=== PATIENT | female | born 1995 | race Caucasian/White ===

== ENCOUNTER 2021-01-02 19:01 | Emergency (ER) | payer BC, OTHER ==
[~2021-01-02] VITALS: Ht 160 cm; Wt 44.1 kg
--- NOTE | 2021-01-02 19:35 | NUR ---
pt presents to the ed with chest pain. pt states it gets worse with movement and deep breaths. pt stated that this pain started this morning with no relief. pt in gown, resting on gurney, and placed on continuous monitoring.
[2021-01-02] MEDS ORDERED: CYCLOBENZAPRINE 10 MG TABLET ONE (19:49)
[2021-01-02] MEDS ORDERED: KETOROLAC 30 MG/1 ML ONE (19:49)
[2021-01-02] MEDS ORDERED: CYCLOBENZAPRINE 10 MG TABLET PO ONE (20:00)
[2021-01-02] MEDS ORDERED: KETOROLAC 30 MG/1 ML IM ONE (20:00)
--- NOTE | 2021-01-02 20:00 | NUR ---
pt at ct
[2021-01-02 20:11] LABS: BASOPHILS % (AUTO) 0 % (0-1); EOSINOPHILS % (AUTO) 2 % (1-7); LYMPHOCYTES % (AUTO) 17 % (22-44); MEAN CORPUSCULAR HEMOGLOBIN 30.5 pg (27.0-34.8); MEAN CORPUSCULAR HGB CONC 33.4 g/dL (32.4-35.8); MEAN PLATELET VOLUME 8.5 fL (7.4-10.4); MONOCYTES % (AUTO) 8 % (2-9); NEUTROPHILS % (AUTO) 74 % (42-75); PLATELET COUNT 224 x10^3/uL (130-400); RED BLOOD COUNT 4.34 x10^6/uL (3.82-5.3); RED CELL DISTRIBUTION WIDTH 12.6 % (9.6-15.2)
--- NOTE | 2021-01-02 20:15 | NUR ---
pt back from ct, resting comfortably in room, denies needs at this time.
[2021-01-02 20:20] LABS: ALANINE AMINOTRANSFERASE 26 U/L (12-78); ALBUMIN 3.6 g/dL (3.4-5.0); ANION GAP 4 mmol/L (5-15); CALCIUM 8.3 mg/dL (8.5-10.1); CHLORIDE 113 mmol/L (98-107); CREATININE 0.72 mg/dL (0.55-1.02)
[2021-01-02 20:24] LABS: ALKALINE PHOSPHATASE 65 U/L (45-117); BILIRUBIN,TOTAL 0.5 mg/dL (0.2-1.0); TROPONIN I < 0.015 ng/mL (0.000-0.045)
[2021-01-02 21:00] VITALS: BP 103/62
--- NOTE | 2021-01-02 21:30 | NUR ---
pt resting comforatbly in room, denies needs at this time.
[2021-01-02] MEDS ORDERED: OMNIPAQUE 350 MG/ML, 100ML BOTTLE ONE (22:30)
--- NOTE | 2021-01-02 22:38 | NUR ---
Patient given discharge instructions and they have confirmed that they understand the instructions. Patient ambulatory with steady gait.
== END 2021-01-02 22:42 | disposition home or self-care (01) ==
LOC: ED 22:36
DX: J98.2 Interstitial emphysema (principal); I31.9 Disease of pericardium, unspecified; R07.89 Other chest pain
CPT/HCPCS: 36415; 71046; 71275; 74220; 80053; 84484; 85025; 85379; 93005; 96372; 99285; J1885; Q9967